=== PATIENT | female | born 1945 | race Caucasian/White ===

== ENCOUNTER → 2016-12-21 | Outpatient (CLI) | payer MEDICARE, BC ==
[~2016-12-21] MED LIST: ALDACTONE100 MG PO; LASIX80 MG PO; SODIUM FLUORIDE; SYNTHROID25 MCG PO; SYNTHROID75 MCG PO
== END | disposition short-term general hospital (02) ==
LOC: CLONCO 12-07 11:35
DX: C02.9 Malignant neoplasm of tongue, unspecified (principal); D69.6 Thrombocytopenia, unspecified; K76.9 Liver disease, unspecified; K76.6 Portal hypertension; D50.9 Iron deficiency anemia, unspecified; Z85.89 Personal history of malignant neoplasm of other organs and systems

== ENCOUNTER 2017-01-24 15:16 | Emergency (ER) | payer MEDICARE, BC ==
[~2017-01-24] VITALS: Ht 185.4 cm; Wt 106.6 kg
[~2017-01-24 15:16] MED LIST changes: -LASIX80 MG PO; -SODIUM FLUORIDE; -SYNTHROID75 MCG PO
[2017-01-24] MEDS ORDERED: LASIX80 MG PO (16:01)
[2017-01-24] MEDS ORDERED: SYNTHROID75 MCG PO (16:01)
[2017-01-24] MEDS ORDERED: SODIUM FLUORIDE (16:03)
== END 2017-01-24 16:50 | disposition short-term general hospital (02) ==
LOC: ER 15:16
DX: S72.041A Displaced fracture of base of neck of right femur, initial encounter for closed fracture (principal); K74.60 Unspecified cirrhosis of liver; E03.9 Hypothyroidism, unspecified; Z85.810 Personal history of malignant neoplasm of tongue; Z86.2 Personal history of diseases of the blood and blood-forming organs and certain disorders involving the immune mechanism; Z90.49 Acquired absence of other specified parts of digestive tract; Z79.899 Other long term (current) drug therapy; W18.30XA Fall on same level, unspecified, initial encounter
CPT/HCPCS: 73502-RT; J2175; J2405; J2765; J3010

== ENCOUNTER → 2017-05-11 | Outpatient (CLI) | payer MEDICARE, BC ==
[~2017-05-11] MED LIST changes: +LASIX80 MG PO; +SODIUM FLUORIDE; +SYNTHROID75 MCG PO
== END | disposition short-term general hospital (02) ==
LOC: CLONCO 06:56
DX: D50.9 Iron deficiency anemia, unspecified (principal); K75.4 Autoimmune hepatitis; K74.60 Unspecified cirrhosis of liver; C02.9 Malignant neoplasm of tongue, unspecified; D47.3 Essential (hemorrhagic) thrombocythemia; K76.6 Portal hypertension